=== PATIENT | male | born 1975 | race American Indian/Alaskan Native ===

== ENCOUNTER 2016-07-27 17:50 | Emergency (ER) | payer MEDICARE ==
[2016-07-27 17:51] VITALS: BMI 36.4
[2016-07-27 18:14] VITALS: O2SAT 97
[2016-07-27] MEDS ORDERED: Oxycodone/Acetaminophen 5/325 mg Tab PO STA (19:26)
[2016-07-27] MEDS ORDERED: Oxycodone/Acetaminophen 5/325 mg Tab ONE (19:30)
--- NOTE | 2016-07-27 21:03 | CT ---
EXAM: CT Head Without Intravenous Contrast CLINICAL HISTORY: 40 years old, male; Injury or trauma; Fall; Initial encounter; Concussion / head injury; Additional info: Dizziness TECHNIQUE: Axial computed tomography images of the head/brain without intravenous contrast. This CT exam was performed using one or more of the following dose reduction techniques: automated exposure control, adjustment of the mA and/or kV according to patient size, and/or use of iterative reconstruction technique. COMPARISON: No relevant prior studies available. FINDINGS: Brain: No acute intracranial hemorrhage. No significant white matter disease. No edema. Ventricles: No significant ventriculomegaly. Bones: No acute displaced fracture. Sinuses: Unremarkable as visualized. No acute sinusitis. Mastoid air cells: Unremarkable as visualized. No mastoid effusion. IMPRESSION: No acute intracranial hemorrhage, or suspicious mass effect.
--- NOTE | 2016-07-27 21:10 | CT ---
EXAM: CT Cervical Spine Without Intravenous Contrast CLINICAL HISTORY: 40 years old, male; Injury or trauma; Fall; Initial encounter; Sprain or strain, cervical ligaments; Additional info: Pain, fall TECHNIQUE: Axial computed tomography images of the cervical spine without intravenous contrast. This CT exam was performed using one or more of the following dose reduction techniques: automated exposure control, adjustment of the mA and/or kV according to patient size, and/or use of iterative reconstruction technique. Coronal and sagittal reformatted images were created and reviewed. COMPARISON: No relevant prior studies available. FINDINGS: Vertebrae: No acute fracture. Prominent nutrient foramens are identified, specifically within the vertebral bodies of C5 and C6. Alignment: Straightening and slight reversal of the normal curvature of the cervical spine, possibly muscular in origin. Discs/spinal canal/neural foramina: No acute findings. Degenerative disease is present, with osteophyte formation, and disc space narrowing. Soft tissues: Symmetric Lung apices: The visualized lung apices are clear. IMPRESSION: Degenerative disease, without acute fracture.
[2016-07-27 21:33] VITALS: BP 115/73; PULSE 74; RESP 18; TEMP 97.9
--- NOTE | 2016-07-27 22:03 | C.PDOC ---
History Of Present Illness 40 year old male presents to the ED with complaints of headache, and pain to lower back, left hip, neck and shoulder. Patient states he sat on a chair that had no back support while at the movies and then fell backward. Patient then got up and collapsed with LOC. Pt denies any vomiting, nausea, or other complaints at this time. - HPI Time Seen by Provider: 07/27/16 19:13 Chief Complaint (Nursing): Trauma History Per: Patient History/Exam Limitations: no limitations Onset/Duration Of Symptoms: Hrs Associated Symptoms: LOC Recent travel outside of the [place]: No - Fall Fall:Prior To Injury: Other (fell backward in a chair ) Past Medical History Reviewed: Historical Data, Nursing Documentation, Vital Signs Vital Signs: Last Vital Signs Temp 97.9 F 07/27/16 21:33 Pulse 74 07/27/16 21:33 Resp 18 07/27/16 21:33 BP 115/73 07/27/16 21:33 Pulse Ox 97 07/27/16 22:24 - Medical History PMH: HTN, Chronic Kidney Disease Surgical History: Appendectomy - [facility] Procedures OTHER THERAPEUTIC APHERESIS (10/31/14) PART OSTECT-METATAR/TAR (10/31/14) RESECTION OF APPENDIX, PERCUTANEOUS ENDOSCOPIC APPROACH (08/03/15) Family History: States: Unknown Family Hx - Social History Hx Alcohol Use: No Hx Substance Use: No - Immunization History Hx Tetanus Toxoid Vaccination: No Hx Influenza Vaccination: No Hx Pneumococcal Vaccination: No Review Of Systems Constitutional: Negative for: Fever, Chills, Sweats Cardiovascular: Negative for: Chest Pain, Palpitations Respiratory: Negative for: Cough, Shortness of Breath Gastrointestinal: Negative for: Nausea, Vomiting, Abdominal Pain, Diarrhea Musculoskeletal: Positive for: Neck Pain, Shoulder Pain (left shoulder pain), Back Pain (lower back pain) Neurological: Positive for: Headache. Negative for: Seizures Physical Exam - Physical Exam Appears: Non-toxic, No Acute Distress Skin: Warm, Dry Head: Atraumatic Eye(s): bilateral: Normal Inspection, PERRL, EOMI Neck: Decreased ROM (due to pain), Midline Cervical Tenderness, Paracervical Tenderness (left), Supple Chest: Symmetrical, No Deformity, No Tenderness Cardiovascular: Rhythm Regular Respiratory: Normal Breath Sounds, No Wheezing Gastrointestinal/Abdominal: Normal Exam, Soft, No Tenderness, No Distention, Other (obese) Back: Normal Inspection, No CVA Tenderness, Vertebral Tenderness (tenderness to left lumbar), No Muscle Spasm, Paraspinal Tenderness (slight left paralumbar tenderness ), No Straight Leg Raising Extremity: No Normal ROM (decreased ROM of anterior left shoulder, left lower back, and left him ), Tenderness (left shoulder anterior , left hip lateral), No Pedal Edema, No Calf Tenderness, Capillary Refill (good capillary refill ), No Deformity, No Swelling Extremity: Bilateral: Normal Color And Temperature Pulses: Left Radial: Normal, Right Radial: Normal, Left Dorsalis Pedis: Normal, Right Dorsalis Pedis: Normal Neurological/Psych: Oriented x3, Normal Speech, Normal Cognition, Normal Motor, Normal Sensation Gait: Unable To Assess ED Course And Treatment O2 Sat by Pulse Oximetry: 97 (room air ) - CT Scan/US CT Head Without Intravenous Contrast Other Rad Studies (CT/US): Read By Radiologist, Radiology Report Reviewed CT/US Interpretation: EXAM: CT Head Without Intravenous Contrast. CLINICAL HISTORY: 40 years old, male; Injury or trauma; Fall; Initial encounter; Concussion / head injury; Additional info: Dizziness. TECHNIQUE: Axial computed tomography images of the head/brain without intravenous contrast. This CT exam. was performed using one or more of the following dose reduction techniques: automated exposure. control, adjustment of the mA and/or kV according to patient size, and/or use of iterative. reconstruction technique. COMPARISON: No relevant prior studies available. FINDINGS: Brain: No acute intracranial hemorrhage. No significant white matter disease. No edema. Ventricles: No significant ventriculomegaly. Bones: No acute displaced fracture. Sinuses: Unremarkable as visualized. No acute sinusitis. Mastoid air cells: Unremarkable as visualized. No mastoid effusion. IMPRESSION: No acute intracranial hemorrhage, or suspicious mass effect. CT Cervical Spine Without Intravenous Contrast Other Rad Studies (CT/US): Read By Radiologist, Radiology Report Reviewed CT/US Interpretation: EXAM: CT Cervical Spine Without Intravenous Contrast. CLINICAL HISTORY: 40 years old, male; Injury or trauma; Fall; Initial encounter ; Sprain or strain, cervical ligaments;. Additional info: Pain, fall. TECHNIQUE: Axial computed tomography images of the cervical spine without intravenous contrast. This CT. exam was performed using one or more of the following dose reduction techniques: automated. exposure control, adjustment of the mA and/or kV according to patient size, and/or use of iterative. reconstruction technique. Coronal and sagittal reformatted images were created and reviewed. COMPARISON: No relevant prior studies available. FINDINGS: Vertebrae: No acute fracture. Prominent nutrient foramens are identified, specifically within the. vertebral bodies of C5 and C6. Alignment: Straightening and slight reversal of the normal curvature of the cervical spine , possibly. muscular in origin. Discs/spinal canal/neural foramina: No acute findings. Degenerative disease is present, with. osteophyte formation, and disc space narrowing. Soft tissues: Symmetric. Lung apices: The visualized lung apices are clear. IMPRESSION: Degenerative disease, without acute fracture. Progress Note: Diagnostic studies reviewed and d/w pt. He reports minimal improvement and is ambulatory in ED. Pt will follow up with PMD Disposition Counseled Patient/Family Regarding: Diagnosis - Disposition Disposition: HOME/ ROUTINE Disposition Time: 22:20 Condition: STABLE Additional Instructions: Take meds as prescribed Follow up with PMD Return top ER if worse Prescriptions: Cyclobenzaprine [Cyclobenzaprine HCl] 10 mg PO BID #14 tab Naproxen [Naprosyn] 1 tab PO BID PRN #25 tab PRN Reason: Pain Instructions: Contusion in Adults (ED) - Clinical Impression Clinical Impression: Status post fall, Multiple contusions - Scribe Statement The provider has reviewed the documentation as recorded by the Scribderek Clayton All medical record entries made by the Yokastaibe were at my direction and personally dictated by me. I have reviewed the chart and agree that the record accurately reflects my personal performance of the history, physical exam, medical decision making, and the department course for this patient. I have also personally directed, reviewed, and agree with the discharge instructions and disposition.
--- NOTE | 2016-07-28 08:34 | RAD ---
PROCEDURE: Left Hip X-ray Radiographs. HISTORY: pain, fall COMPARISON: None. FINDINGS: BONES: No fracture dislocation. Superolateral joint space is narrowed. Bilateral superolateral acetabular roof mild spurring is noted. The acetabular/ femoral morphology may reflect a clinical femoral acetabular impingement syndrome. JOINTS: As above sacroiliac and pubic symphyseal joints unremarkable SOFT TISSUES: Normal. 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 No fracture.
--- NOTE | 2016-07-28 08:37 | RAD ---
PROCEDURE: Radiographs of the Lumbar Spine. HISTORY: pain, fall COMPARISON: No prior. FINDINGS: BONES: Leftward thoracolumbar convexity No listhesis. No fracture. DISC SPACES: Unremarkable. OTHER FINDINGS: Partially visualized right lower abdominal surgical clips IMPRESSION: Thoracolumbar levoscoliosis. No fracture or subluxation appreciated
--- NOTE | 2016-07-28 08:38 | RAD ---
PROCEDURE: Radiographs of the Left Shoulder HISTORY: pain, fall COMPARISON: No prior. FINDINGS: BONES: No fracture or dislocation. Leftward cervical thoracic curvature JOINTS: Glenohumeral and acromioclavicular mild osteoarthritis. SOFT TISSUES: Normal. OTHER FINDINGS: None. IMPRESSION: No fracture or dislocation. Left shoulder arthrosis Cervical thoracic levoscoliosis
== END 2016-07-27 23:08 | disposition home or self-care (01) ==
LOC: C.ER 17:50
DX: T14.8 Other injury of unspecified body region (principal); W07.XXXA Fall from chair, initial encounter; Y92.26 Movie house or cinema as the place of occurrence of the external cause